=== PATIENT | male | born 1990 | race Caucasian/White ===

== ENCOUNTER 2019-05-25 08:46 | Emergency (ER) | payer MEDICAID, OTHER ==
[~2019-05-25] VITALS: Ht 182.9 cm; Wt 100.0 kg
[2019-05-25] MEDS ORDERED: normal saline 1000ML IV soln IVB ONE (08:55)
--- NOTE | 2019-05-25 09:10 | NUR ---
two ice packs to right upper arm and three to right leg
--- NOTE | 2019-05-25 09:11 | NUR ---
PATIENT WITH SCATTERED SMALL ABRASIONS TO NOSE LEFT WRIST RIGHT ARM: 1 CM POSTERIOR LACERATION TO RIGHTUPPER ARM, SCATTERED ABRASIONS TO RIGHT LEG RIGHT KNEE TO RIGHT FOOT WITH MODERATE SWELLING
[2019-05-25 09:35] LABS: URINE AMPHETAMINE SCREEN POSITIVE (Neg); URINE BARBITUATE SCREEN NEGATIVE (Neg); URINE BENZODIAZEPINES SCREEN NEGATIVE (Neg); URINE CANNABINOID SCREEN NEGATIVE (Neg); URINE COCAINE SCREEN NEGATIVE (Neg); URINE METHADONE SCREEN NEGATIVE (Neg); URINE OPIATE SCREEN POSITIVE (Neg); URINE PHENCYCLIDINE SCREEN NEGATIVE (Neg)
--- NOTE | 2019-05-25 09:41 | NUR ---
Informed Dr Yang: of decreased right pedal pulse and decreased ability to move right toes: moves right great toe; informed of patient's persistent pain despite placement of ice packs
[2019-05-25] MEDS ORDERED: ketorolac trometh. 30mg/ml inj. IV ONE (09:45)
[2019-05-25] MEDS ORDERED: LIDOcaine 1% W/epiNEPHrine 1:100,000 20ml vial SQ ONE (09:55)
--- NOTE | 2019-05-25 10:00 | NUR ---
PATIENT'S FACE, LEFT WRIST, RIGHT ARM AND RIGHT LEG CLEANED WITH BATH WIPES AND NS . LEFT POSTERIOR UPPER ARM WITH 1 CM LACERATION: CLEANED WITH 50 ML NS BY KULWINDER QUIROZ AND SUTURED BY DR CHÁVEZ. TELFA, AND GAUZE WRAP TO BE APPLIED BY [employer]UL[employer] QUIROZ WELL A RIGHT POSTERIOR ORTHO GLASS SPLINT WITH A SLING FOR COMFORT
[2019-05-25] MEDS ORDERED: TETanus/Pertussis (Acell)/Diphther VAC/PF (Tdap-Adult) 0.5ml syringe IMVAC ONE (10:20)
[2019-05-25] MEDS ORDERED: acetaminophen 325mg tablet PO ONE (10:30)
[2019-05-25] MEDS ORDERED: HYDROcodone/acetaminophen 10/325mg tab PO ONE (10:55)
--- NOTE | 2019-05-25 11:16 | NUR ---
ASKED DR CHÁVEZ TO EVALUATE PATIENT'S RIGHT FOOT: SUPERIOR LUMP ABOUT 3CM WIDE X 3CM HIGH. DR CHÁVEZ STATED THAT PATIENT'S BILATERAL PEDAL AND POSTERIOR TIBIALIS PULSES ARE "OK". DR CHÁVEZ WILL ORDER A XRAY OF HIS RIGHT FOOT
--- NOTE | 2019-05-25 12:02 | NUR ---
RIGHT ANKLE AND RIGHT LOWER LEG CONCEPCION WRAPPED PER DR CHÁVEZ'S VERBAL ORDER. RIGHT FOOT WEAK PEDALIS: REGULAR, STRONG AND REGULAR POSTERIOR TIBIALIS RIGHT; GLOVE PRESSER WNL BILATERALLY, LEFT PEDALIS AND POSTERIOR TIBIALIS STRONG REGULAR
--- NOTE | 2019-05-25 12:15 | NUR ---
PATIENT EDUCATION REGARDING SIGNS AND SYMPTOMS OF DECREASED PERFUSION AND SIGNS AND SYMPTOMS OF INFECTION. PATIENT VERBALIZED THE FOLLOWING: PATIENT ABLE TO MOVE AND FEEL FINGERS AND TOES AND PATIENT'S COLOR AND CAP REFILL: PATIENT DEMONSTRATED. PATIENT VERBALIZED SIGNS OR SYMPTOMS OF INFECTION: INCREASED REDNESS, INCREASED SWELLING, DISCHARGE OR FEVER.
[2019-05-25 12:32] VITALS: BP 144/81
== END 2019-05-25 12:22 ==
LOC: ER 08:46
DX: S42.494A Other nondisplaced fracture of lower end of right humerus, initial encounter for closed fracture (principal); S82.891A Other fracture of right lower leg, initial encounter for closed fracture; S51.011A Laceration without foreign body of right elbow, initial encounter; S50.01XA Contusion of right elbow, initial encounter; S80.11XA Contusion of right lower leg, initial encounter; S09.90XA Unspecified injury of head, initial encounter; F15.90 Other stimulant use, unspecified, uncomplicated; F10.99 Alcohol use, unspecified with unspecified alcohol-induced disorder; Y08.89XA Assault by other specified means, initial encounter; Y93.89 Activity, other specified; Y92.89 Other specified places as the place of occurrence of the external cause; Y99.8 Other external cause status; Y90.9 Presence of alcohol in blood, level not specified
CPT/HCPCS: 12001; 36415; 73060; 73080; 73564; 73590; 73610; 80305; 80320; 90471; 90715; 96374; 99284; J1885; J7030

== ENCOUNTER 2019-06-11 09:48 | Outpatient (CLI) | payer OTHER | END 2019-06-11 11:00 | disposition home or self-care (01) | LOC: ORTHO 09:48 | PROVIDERS: ATTEND Nurse Practitioner | DX: M25.471 Effusion, right ankle (principal); M25.571 Pain in right ankle and joints of right foot; F17.200 Nicotine dependence, unspecified, uncomplicated | CPT/HCPCS: 73080; 73610; G0463 ==

== ENCOUNTER 2021-04-19 17:35 | Emergency (ER) | payer SELFPAY ==
[~2021-04-19] VITALS: Ht 182.9 cm; Wt 111.7 kg
[2021-04-19 17:48] VITALS: BP 142/89
[2021-04-19] MEDS ORDERED: sulfamethoxazole/trimethoprim DS (800/160mg) tablet PO ONE (22:25)
[2021-04-19] MEDS ORDERED: cephalexin 500mg capsule PO ONE (22:25)
[2021-04-19] MEDS ORDERED: SULF1TAB49 PO (22:31)
[2021-04-19] MEDS ORDERED: CEPH-585 PO (22:31)
[2021-04-20] MEDS ORDERED: SULF1TAB49 PO (22:59)
[2021-04-20] MEDS ORDERED: CEPH-585 PO (22:59)
== END 2021-04-19 22:38 | disposition home or self-care (01) ==
LOC: ER 17:35
DX: L03.115 Cellulitis of right lower limb (principal)
CPT/HCPCS: 99283

== ENCOUNTER 2021-04-20 22:49 | Emergency (ER) | payer MEDICAID ==
[~2021-04-20] VITALS: Ht 182.9 cm; Wt 104.5 kg
[~2021-04-20 22:49] MED LIST: CEPH-585 PO; SULF1TAB49 PO
[2021-04-20] MEDS ORDERED: SULF1TAB49 PO (22:59)
[2021-04-20] MEDS ORDERED: CEPH-585 PO (22:59)
[2021-04-20] MEDS ORDERED: cephalexin 250mg capsule PO ONE (23:00)
[2021-04-20] MEDS ORDERED: sulfamethoxazole/trimethoprim DS (800/160mg) tablet PO ONE (23:00)
[2021-04-20] MEDS ORDERED: TETanus/Pertussis (Acell)/Diphther VAC/PF (Tdap-Adult) 0.5ml syringe IMVAC ONE (23:10)
[2021-04-20 23:11] VITALS: BP 154/110
== END 2021-04-20 23:35 ==
LOC: ER 22:50
DX: Z00.8 Encounter for other general examination (principal); L03.115 Cellulitis of right lower limb; Z20.3 Contact with and (suspected) exposure to rabies; Z72.89 Other problems related to lifestyle; Z79.2 Long term (current) use of antibiotics; Z79.899 Other long term (current) drug therapy
CPT/HCPCS: 90471; 90715; 99283